=== PATIENT | female | born 1975 | race Caucasian/White ===

== ENCOUNTER 2022-05-03 15:18 | Emergency (ER) | payer MEDICAID ==
[~2022-05-03] VITALS: Ht 170.2 cm; Wt 81.8 kg
[2022-05-03 15:38] VITALS: BP 158/92
== END 2022-05-03 19:43 | disposition home or self-care (01) ==
LOC: ER 15:19
DX: J06.9 Acute upper respiratory infection, unspecified (principal); Z20.822 Contact with and (suspected) exposure to COVID-19; Z91.040 Latex allergy status
CPT/HCPCS: 71046; 87635; 99284; C9803

== ENCOUNTER 2024-08-29 13:38 | Emergency (ER) | payer BC, MEDICAID ==
[~2024-08-29] VITALS: Ht 170.2 cm; Wt 77.5 kg
[2024-08-29 13:39] VITALS: TEMP 96.9
[2024-08-29 14:20] LABS: BASOPHILS # (AUTO) 0.1 X10'3 (0-0.2); BASOPHILS % (AUTO) 0.8 % (0-1); EOSINOPHILS # (AUTO) 0.2 X10'3 (0-0.9); EOSINOPHILS % (AUTO) 1.6 % (0-6); HEMATOCRIT 38.9 % (35.0-45.0); HEMOGLOBIN 12.7 g/dl (12.0-16.0); LYMPHOCYTES # (AUTO) 2.2 X10'3 (1.1-4.8); MEAN CORPUSCULAR HEMOGLOBIN 27.5 PG (27.0-31.0); MEAN CORPUSCULAR HGB CONC 32.7 g/dL (33.0-36.5); MEAN CORPUSCULAR VOLUME 84.1 FL (78-98); MEAN PLATELET VOLUME 7.2 FL (7.4-10.4); MONOCYTES # (AUTO) 0.9 X10'3 (0-0.9); MONOCYTES % (AUTO) 6.4 % (2-12); NEUTROPHILS # (AUTO) 10.2 X10'3 (1.8-7.7); NEUTROPHILS % (AUTO) 75.2 % (42-75); PLATELET COUNT 401 X10'3 (140-440); RED BLOOD COUNT 4.62 X10'6 (4.20-5.60); RED CELL DISTRIBUTION WIDTH 15.2 % (11.5-14.5); WHITE BLOOD COUNT 13.6 X10'3 (4.5-11.0)
[2024-08-29 14:23] LABS: BILIRUBIN,URINE NEGATIVE (Neg); GLUCOSE, URINE NEGATIVE (Neg); KETONES,URINE NEGATIVE (Neg); LEUKOCYTE ESTERASE ,URINE TRACE (Neg); NITRITES, URINE NEGATIVE (Neg); OCCULT BLOOD,URINE LARGE (Neg); PH,URINE 6.5 (4.8-8.0); PROTEIN,URINE 100 mg/dl (Neg); UROBILINOGEN,URINE 0.2 E.U/dL (0.2-1.0)
[2024-08-29 14:25] LABS: CLARITY,URINE SLIGHTLY CLOUDY (Clear); COLOR,URINE PINK (Yellow); UA COLLECTION TYPE CLN CATCH MIDSTREAM
--- NOTE | 2024-08-29 14:27 | Physician Documentation ---
History of Present Illness General Chief Complaint: Blood in Urine Stated Complaint: VAGINAL BLEEDING/UNABLE TO URINATE Time Seen by MD: 14:00 Primary Medical Doctor: none Mode of Arrival: POV History of Present Illness Initial Comments The patient is a 49-year-old female who presents with bleeding that is either from her vagina or urine, she is not certain. This started today. She does have an IUD and does not have regular menstrual periods. She feels a pressure or discomfort associated with the bleeding. Medication Reconciliation Allergies: Coded Allergies: latex (Unverified Allergy, Unknown, 05/03/22) Review of Systems ROS Constitutional: Denies chills, fatigue, fever, weight gain or weight loss. HEENT: Denies hearing loss, sinus pressure or visual changes. Respiratory: Denies cough, shortness of breath or wheezing. Cardiovascular: Denies chest pain, pain while walking (claudication), edema or palpitations. Gastrointestinal: Denies abdominal pain, blood in stool, constipation, diarrhea, heartburn, loss of appetite, nausea or vomiting. Genitourinary: Frequency of urination and associated bleeding. Metabolic/Endocrine: Denies cold intolerance, heat intolerance, excessive thirst (polydipsia) or excessive hunger (polyphagia). Neurological: Denies dizziness, extremity numbness, extremity weakness, headaches, seizures or tremors. Psychiatric: Denies anxiety or depression. Integumentary: Denies breast discharge, breast lump, hives, mole change(s), rash or skin lesion. Musculoskeletal: Denies back pain, joint pain, joint swelling or neck pain. Hematologic: Denies easily bleeding, easily bruises, lymphedema or issues with blood clots. Immunologic: Denies food allergies or seasonal allergies. Physical Exam Physical Exam Vital Signs: Temperature: 96.9, Source: Temporal, Heart Rate: 91, Respiratory Rate: 18, BP: 179/81, Pulse Oximetry: 95, Weight: 77.500 Physical Exam Physical Exam Vitals and nursing note reviewed. Constitutional: General: Patient is awake, alert, oriented x 4 in no acute distress and well appearing. Speech is clear and lucid. Appearance: Normal appearance. Patient is not ill-appearing, toxic-appearing or diaphoretic. HENT: Head: Normocephalic and atraumatic. Mouth/Throat: Mouth: Mucous membranes are moist. Pharynx: Oropharynx is clear. Eyes: General: No scleral icterus. Extraocular Movements: Extraocular movements intact. Pupils: Pupils are equal, round, and reactive to light. Cardiovascular: Rate and Rhythm: Normal rate and regular rhythm. Heart sounds: No murmur heard. Pulmonary: Effort: No respiratory distress. Breath sounds: No wheezing, rhonchi or rales. Abdominal: General: There is no distension. Palpations: There is no fluid wave, hepatomegaly or mass. Tenderness: There is no abdominal tenderness. There is no guarding. Pelvic exam with speculum reveals no blood. Musculoskeletal: General: No swelling or deformity. Skin: Coloration: Skin is not jaundiced. Findings: No erythema or rash. Neurological: Mental Status: Patient is alert. Progress Results/Orders Results/Orders Orders - ИРИНА BARBOZA MD Hcg, Ur Ql (08/29/24 13:44) Cult Urine + [address] (08/29/24 14:32) Ciprofloxacin Tablet (Cipro Tablet) (08/29/24 14:55) Phenazopyridine Tablet (Pyridium Tablet) (08/29/24 14:55) Completed Orders - ИРИНА BARBOZA MD Cbc/Diff (08/29/24 13:44) BMP (08/29/24 13:44) Lipase (08/29/24 13:44) CMP (08/29/24 13:44) Ua W/Microscopic, Cult If Ind (08/29/24 13:45) Vital Signs 08/29/24 08/29/24 08/29/24 13:39 13:49 14:50 Temp 96.9 Pulse 91 86 Resp 15 18 18 B/P (MAP) 179/81 144/63 (90) Pulse Ox 95 96 O2 Flow Rate 0 Laboratory Tests Test 08/29/24 13:45 08/29/24 13:57 Urine Specimen Description Cln catch midstream Urine Color [place] Urine Clarity Slightly cloudy Urine pH 6.5 Urine Specific [place] <=1.005 Urine Protein 100 H Urine Glucose (UA) Negative Urine Ketones Negative Urine Occult Blood Large H Urine Nitrite Negative Urine Bilirubin Negative Urine Urobilinogen 0.2 Urine Leukocyte Esterase Trace H Urine RBC Tntc Urine WBC 10-20 H Urine Squamous Epithelial Cells Few Urine Bacteria 1+ Urine Mucus None seen Urine Culture Indicated Indicated Volume Urine Centrifuged 10 ml Urine Comment White Blood Count 13.6 H Red Blood Count 4.62 Hemoglobin 12.7 Hematocrit 38.9 Mean Corpuscular Volume 84.1 Mean Corpuscular Hemoglobin 27.5 Mean Corpuscular Hemoglobin Concent 32.7 L Red Cell Distribution Width 15.2 H Platelet Count 401 Mean Platelet Volume 7.2 L Neutrophils (%) (Auto) 75.2 H Lymphocytes (%) (Auto) 16.0 L Monocytes (%) (Auto) 6.4 Eosinophils (%) (Auto) 1.6 Basophils (%) (Auto) 0.8 Neutrophils # (Auto) 10.2 H Lymphocytes # (Auto) 2.2 Monocytes # (Auto) 0.9 Eosinophils # (Auto) 0.2 Basophils # (Auto) 0.1 CBC Comment Sodium Level 141 Potassium Level 4.1 Chloride Level 105 Carbon Dioxide Level 26.0 Anion Gap 10 Blood Urea Nitrogen 10 Creatinine 0.61 Estimated GFR/1.73 m2 > 90 BUN/Creatinine Ratio 16.4 Glucose Level 95 Calcium Level 9.1 Total Bilirubin 0.3 Aspartate Amino Transf (AST/SGOT) 18 Alanine Aminotransferase (ALT/SGPT) 28 Alkaline Phosphatase 139 H Total Protein 7.6 Albumin 3.6 Globulin 4.0 Albumin/Globulin Ratio 0.9 L Lipase 44 Chemistry Comments Medical Decision Making Findings This 49-year-old lady presents with hematuria and burning. She has a urinary tract infection supported by urinalysis. In addition, a pelvic exam revealed no blood in the vagina. I am starting her on ciprofloxacin and Pyridium. Departure Disposition: 01 HOME / SELF CARE / HOMELESS Impression: Primary Impression: UTI (urinary tract infection) Condition: Stable Additional Instructions: You have been diagnosed with a urinary tract infection. It is important to drink lots and lots of fluids. I have sent prescriptions for an antibiotic and Pyridium (which will make your urine colored orange) to your pharmacy. Please be sure to follow-up with your PCP in 10 days. In the meantime, return here for worsening symptoms or new/unusual symptoms. Referrals: NO PRIMARY CARE PROVIDER (PCP) Prescriptions Phenazopyridine Hcl (Pyridium tablet) 100 Mg Tablet 2 TAB PO Q8H PRN for pain, #12 TAB Prov: ИРИНА BARBOZA MD 08/29/24 Ciprofloxacin HCl (Cipro) 250 Mg Tablet 1 TAB PO Q12H for 3 Days, #6 TAB 0 Refills Prov: ИРИНА BARBOZA MD 08/29/24 Signature Scribe Signature: . Attestation: . ИРИНА BARBOZA MD Aug 29, 2024 14:27
[2024-08-29 14:31] LABS: BACTERIA,URINE 1+ /HPF (Neg); MUCUS STRANDS NONE SEEN /LPF (Neg); RBC,URINE TNTC /HPF (0-2); SQUAMOUS EPITHELIAL CELL,UR FEW /LPF (FEW)
[2024-08-29 14:35] LABS: ALANINE AMINOTRANSFERASE 28 U/L (12-78); ALBUMIN 3.6 G/DL (3.4-5.0); ALBUMIN/GLOBULIN RATIO 0.9 (1.1-1.5); ALKALINE PHOSPHATASE 139 IU/L (46-116); ANION GAP 10 (8-16); ASPARTATE AMINO TRANSFERASE 18 U/L (10-37); BILIRUBIN,TOTAL 0.3 MG/DL (0.1-1.0); BLOOD UREA NITROGEN 10 MG/DL (7-18); BUN/CREATININE RATIO 16.4 (10.0-20.0); CALCIUM 9.1 MG/DL (8.5-10.1); CHLORIDE 105 MMOL/L (99-107); CREATININE 0.61 MG/DL (0.40-0.90); GLUCOSE 95 MG/DL (70-104); LIPASE 44 U/L (16-77); POTASSIUM 4.1 MMOL/L (3.5-5.1); SODIUM 141 MMOL/L (135-145); TOTAL PROTEIN 7.6 G/DL (6.4-8.2); eCRCL 110 ML/MIN; eGFR > 90 ML/MIN
[2024-08-29 14:50] VITALS: BP 144/63; PULSE 86; RESP 18; O2SAT 96
[2024-08-29] MEDS ORDERED: CIPR-260 PO (14:57)
[2024-08-29] MEDS ORDERED: PHEN-786 PO (14:57)
[2024-08-29] MEDS: ciprofloxacin 250mg tablet PO ONE (14:59)
[2024-08-29] MEDS: phenazopyridine 100mg tablet PO ONE (14:59)
[2024-08-29 15:10] LABS: URINE HCG NEGATIVE (NEG)
== END 2024-08-29 15:34 | disposition home or self-care (01) ==
LOC: ER 13:39
DX: N39.0 Urinary tract infection, site not specified (principal); R31.9 Hematuria, unspecified; Z91.040 Latex allergy status
CPT/HCPCS: 36415; 80053; 81001; 81025; 83690; 85025; 87088; 99283; 99284